=== PATIENT | female | born 1990 | race Caucasian/White ===

== ENCOUNTER 2017-10-09 23:02 | Emergency (ER) | payer BC, MEDICAID ==
[~2017-10-09] VITALS: Ht 167.6 cm; Wt 96.0 kg
[2017-10-10 04:22] VITALS: BP 116/68
== END 2017-10-10 04:25 | disposition home or self-care (01) ==
LOC: ER 23:02
DX: H57.8 Other specified disorders of eye and adnexa (principal); Y08.89XA Assault by other specified means, initial encounter; Y93.89 Activity, other specified; Y92.89 Other specified places as the place of occurrence of the external cause; Y99.8 Other external cause status
CPT/HCPCS: 99283; J7050